=== PATIENT | female | born 1930 | race African-American/Black ===

== ENCOUNTER 2017-07-28 18:25 | Emergency (ER) | payer MEDICARE, OTHER ==
[~2017-07-28] VITALS: Ht 162.6 cm; Wt 50.0 kg
[2017-07-28] MEDS ORDERED: BENA40TA66 PO (18:31)
[2017-07-28] MEDS ORDERED: AMLO2.5T2 PO (18:31)
[2017-07-28] MEDS ORDERED: SODIUM CHLORIDE 0.9% 1,000 ML IV ONE (18:42)
[2017-07-28 19:19] LABS: BASOPHILS % 0.8 % (0.0-2.0); EOSINOPHILS % 2.6 % (0.0-5.0); HEMATOCRIT. 35.5 % (36.0-48.0); LYMPHOCYTES % 27.1 % (20.0-50.0); MEAN CORPUSCULAR HEMOGLOBIN 29.4 pg (28.0-32.0); MEAN CORPUSCULAR VOLUME 86.6 fL (81.0-99.0); MEAN PLATELET VOLUME 8.7 fl (7.4-10.4); MONOCYTES % 10.2 % (2.0-8.0); NEUTROPHILS % 59.3 % (40.0-76.0); PLATELET 221 x1000/uL (130-400); RED CELL DISTRIBUTION WIDTH 14.2 % (11.6-14.6)
[2017-07-28 19:36] LABS: CARBON DIOXIDE 29 mEq/L (21-32); CHLORIDE 103 mEq/L (98-107); TROPONIN I < 0.02 ng/mL (0.00-0.04)
[2017-07-28 20:54] LABS: CLARITY URINE CLEAR (CLEAR); COLOR URINE YELLOW (YELLOW); GLUCOSE URINE NEGATIVE (NEGATIVE); KETONES URINE NEGATIVE (NEGATIVE); LEUKOCYTE ESTERASE URINE NEGATIVE (NEGATIVE); NITRITE URINE NEGATIVE (NEGATIVE); OCCULT BLOOD URINE NEGATIVE (NEGATIVE); PH URINE 6.5 (4.5-8.0); PROTEIN URINE NEGATIVE (NEGATIVE); SPECIFIC GRAVITY URINE 1.013 (1.005-1.030)
[2017-07-28] MEDS ORDERED: POTASSIUM CHLORIDE 20MEQ/PACKET PO ONE (21:30)
[2017-07-28 22:31] VITALS: BP 119/71
== END 2017-07-28 22:32 | disposition home or self-care (01) ==
LOC: ER 18:27 → CMPBEDREQ 23:28
DX: N17.9 Acute kidney failure, unspecified (principal); E87.6 Hypokalemia; R55 Syncope and collapse
CPT/HCPCS: 36415; 70450; 71010; 80053; 81003; 83735; 83880; 84484; 85025; 87086; 93005; 96360; 96361; 99285; J7030

== ENCOUNTER 2019-05-27 17:43 | Inpatient (IN) | payer MEDICARE ==
[~2019-05-27] VITALS: Ht 154.9 cm; Wt 56.2 kg
[~2019-05-27 17:43] MED LIST: AMLO2.5T2 PO; BENA40TA66 PO
[2019-05-27] MEDS ORDERED: NITROGLYCERIN 0.4MG TABLET SL SL PRN (18:30)
[2019-05-27] MEDS ORDERED: NA PHOS,M-B/NA PHOS,DI-BA ENEMA 118ML PR ONE (18:30)
[2019-05-27] MEDS ORDERED: CLONIDINE 0.1MG TABLET PO PRN (18:30)
[2019-05-27] MEDS ORDERED: ACETAMINOPHEN 325MG TABLET PO PRN (18:30)
[2019-05-27] MEDS ORDERED: GUAIFENESIN 200MG/10ML SUGAR FREE UDC PO PRN (18:30)
[2019-05-27] MEDS ORDERED: IPRATROPIUM/ALBUTEROL 0.5-3(2.5)MG/3ML NEB HHN PRN (18:30)
[2019-05-27] MEDS ORDERED: ZOLPIDEM TARTRATE 5MG TABLET PO PRN (18:30)
[2019-05-27] MEDS ORDERED: TRAMADOL 50MG TABLET PO PRN (18:30)
[2019-05-27] MEDS ORDERED: MAGNESIUM/ALUMINUM HYDROXIDE/SIMETHICONE 30ML UDC PO PRN (18:30)
[2019-05-27 18:47] VITALS: BP 137/83
[2019-05-27] MEDS ORDERED: NA PHOS,M-B/NA PHOS,DI-BA ENEMA 118ML PR PRN (19:15)
[2019-05-27 20:00] VITALS: BP 131/82
[2019-05-27 20:05] VITALS: BP 131/82
[2019-05-27] MEDS ORDERED: ENOXAPARIN 60MG/0.6ML SYR SUBCUT SCH (21:00)
[2019-05-27] MEDS: ATORVASTATIN CALCIUM 10MG TABLET PO SCH (21:05)
[2019-05-27] MEDS: DILTIAZEM HCL 60MG TABLET PO SCH (23:40)
[2019-05-28] MEDS: DILTIAZEM HCL 60MG TABLET PO SCH ×3 (05:21→16:53)
[2019-05-28 08:14] VITALS: BP 134/73
[2019-05-28 08:14] LABS: BASOPHILS % 0.9 % (0.0-2.0); EOSINOPHILS % 3.7 % (0.0-5.0); HEMATOCRIT. 39.2 % (36.0-48.0); HEMOGLOBIN. 13.5 g/dL (12.0-16.0); LYMPHOCYTES % 29.2 % (20.0-50.0); MEAN CORPUSCULAR HEMOGLOBIN 29.8 pg (28.0-32.0); MEAN CORPUSCULAR VOLUME 86.6 fL (81.0-99.0); MEAN PLATELET VOLUME 10.1 fl (7.4-10.4); MONOCYTES % 9.5 % (2.0-8.0); NEUTROPHILS % 56.7 % (40.0-76.0); PLATELET 213 x1000/uL (130-400); RED BLOOD CELL COUNT 4.52 mill/uL (4.2-5.4); RED CELL DISTRIBUTION WIDTH 13.9 % (11.6-14.6)
[2019-05-28 08:28] LABS: CHLORIDE 112 mEq/L (98-107)
[2019-05-28] MEDS: ASPIRIN 325MG EC TABLET PO SCH (08:59)
[2019-05-28] MEDS: DOCUSATE SODIUM 100MG CAPSULE PO SCH ×2 (08:59→16:53)
[2019-05-28] MEDS ORDERED: ENOXAPARIN 60MG/0.6ML SYR SUBCUT SCH (09:00)
[2019-05-28] MEDS: ONDANSETRON HCL 4MG TABLET PO PRN (10:14)
[2019-05-28] MEDS ORDERED: APIXABAN 2.5 MG TABLET PO SCH (18:00)
[2019-05-28 20:00] VITALS: BP 113/71
[2019-05-28] MEDS: ATORVASTATIN CALCIUM 10MG TABLET PO SCH (21:49)
[2019-05-29] MEDS: DILTIAZEM HCL 60MG TABLET PO SCH ×4 (00:34→17:55)
[2019-05-29 08:08] VITALS: BP 122/70
[2019-05-29] MEDS: ASPIRIN 325MG EC TABLET PO SCH (09:12)
[2019-05-29] MEDS: DOCUSATE SODIUM 100MG CAPSULE PO SCH ×2 (09:13→17:54)
[2019-05-29] MEDS: APIXABAN 2.5 MG TABLET PO SCH ×2 (09:13→21:40)
[2019-05-29] MEDS: ONDANSETRON HCL 4MG TABLET PO PRN (19:21)
[2019-05-29 20:00] VITALS: BP 126/71
[2019-05-29 21:39] LABS: CLARITY URINE CLOUDY (CLEAR); COLOR URINE AMBER (YELLOW); KETONES URINE NEGATIVE (NEGATIVE); LEUKOCYTE ESTERASE URINE TRACE (NEGATIVE); NITRITE URINE NEGATIVE (NEGATIVE); OCCULT BLOOD URINE NEGATIVE (NEGATIVE); PH URINE 5.5 (4.5-8.0); PROTEIN URINE 1+ (NEGATIVE); UROBILINOGEN URINE 0.2 E.U./dL (0.2-1.0)
[2019-05-29] MEDS: ATORVASTATIN CALCIUM 10MG TABLET PO SCH (21:40)
[2019-05-30] MEDS: DILTIAZEM HCL 60MG TABLET PO SCH ×5 (05:42→23:42)
[2019-05-30 07:56] LABS: EOSINOPHILS % 4.1 % (0.0-5.0); HEMATOCRIT. 36.6 % (36.0-48.0); HEMOGLOBIN. 12.6 g/dL (12.0-16.0); LYMPHOCYTES % 28.2 % (20.0-50.0); MEAN CORPUSCULAR HEMOGLOBIN 30.1 pg (28.0-32.0); MEAN CORPUSCULAR VOLUME 87.2 fL (81.0-99.0); MEAN PLATELET VOLUME 9.2 fl (7.4-10.4); MONOCYTES % 10.8 % (2.0-8.0); NEUTROPHILS % 55.9 % (40.0-76.0); PLATELET 230 x1000/uL (130-400); RED CELL DISTRIBUTION WIDTH 14.3 % (11.6-14.6)
[2019-05-30 08:06] VITALS: BP 115/53
[2019-05-30] MEDS: APIXABAN 2.5 MG TABLET PO SCH ×2 (08:20→20:31)
[2019-05-30] MEDS: DOCUSATE SODIUM 100MG CAPSULE PO SCH ×2 (08:20→16:59)
[2019-05-30] MEDS: ASPIRIN 325MG EC TABLET PO SCH (08:21)
[2019-05-30 08:47] LABS: CHLORIDE 109 mEq/L (98-107)
[2019-05-30 08:59] LABS: PHOSPHORUS 3.8 mg/dL (2.5-4.9); TOTAL IRON BINDING CAPACITY 197 ug/dL (250-450)
[2019-05-30 10:23] LABS: FOLIC ACID (FOLATE) SERUM 9.6 ng/mL (>5.38)
[2019-05-30] MEDS ORDERED: POTA8CAP20 PO (18:13)
[2019-05-30 20:00] VITALS: BP 120/62
[2019-05-30] MEDS: ATORVASTATIN CALCIUM 10MG TABLET PO SCH (20:31)
[2019-05-31] MEDS: DILTIAZEM HCL 60MG TABLET PO SCH ×3 (05:09→17:15)
[2019-05-31 07:59] LABS: BASOPHILS % 0.8 % (0.0-2.0); EOSINOPHILS % 3.7 % (0.0-5.0); HEMATOCRIT. 37.5 % (36.0-48.0); HEMOGLOBIN. 12.8 g/dL (12.0-16.0); LYMPHOCYTES % 27.3 % (20.0-50.0); MEAN CORPUSCULAR HEMOGLOBIN 29.7 pg (28.0-32.0); MEAN CORPUSCULAR VOLUME 87.2 fL (81.0-99.0); MEAN PLATELET VOLUME 9.2 fl (7.4-10.4); MONOCYTES % 9.2 % (2.0-8.0); PLATELET 220 x1000/uL (130-400); RED CELL DISTRIBUTION WIDTH 14.4 % (11.6-14.6)
[2019-05-31 08:19] VITALS: BP 162/63
[2019-05-31] MEDS: DOCUSATE SODIUM 100MG CAPSULE PO SCH ×2 (08:24→16:14)
[2019-05-31] MEDS: APIXABAN 2.5 MG TABLET PO SCH ×2 (08:25→20:37)
[2019-05-31] MEDS: ASPIRIN 325MG EC TABLET PO SCH (08:25)
[2019-05-31 20:00] VITALS: BP 114/60
[2019-05-31] MEDS: ATORVASTATIN CALCIUM 10MG TABLET PO SCH (20:37)
[2019-06-01] MEDS: DILTIAZEM HCL 60MG TABLET PO SCH ×4 (06:08→17:16)
[2019-06-01 08:00] VITALS: BP_SYST 125; BP_SYST 138; BP_DIAS 65; BP_DIAS 85
[2019-06-01] MEDS: APIXABAN 2.5 MG TABLET PO SCH ×2 (08:31→20:32)
[2019-06-01] MEDS: ASPIRIN 325MG EC TABLET PO SCH (08:31)
[2019-06-01] MEDS: DOCUSATE SODIUM 100MG CAPSULE PO SCH ×2 (09:00→16:20)
[2019-06-01 10:03] LABS: EOSINOPHILS % 3.9 % (0.0-5.0); HEMOGLOBIN. 12.8 g/dL (12.0-16.0); LYMPHOCYTES % 20.8 % (20.0-50.0); MEAN CORPUSCULAR HEMOGLOBIN 29.9 pg (28.0-32.0); MEAN CORPUSCULAR VOLUME 88.6 fL (81.0-99.0); MONOCYTES % 8.6 % (2.0-8.0); NEUTROPHILS % 65.7 % (40.0-76.0); PLATELET 214 x1000/uL (130-400); RED BLOOD CELL COUNT 4.29 mill/uL (4.2-5.4); RED CELL DISTRIBUTION WIDTH 14.4 % (11.6-14.6)
[2019-06-01] MEDS: CYANOCOBALAMIN 1000MCG/ML VIAL IM SCH (15:36)
[2019-06-01 20:00] VITALS: BP 145/70
[2019-06-01] MEDS: ATORVASTATIN CALCIUM 10MG TABLET PO SCH (20:31)
[2019-06-02] MEDS: DILTIAZEM HCL 60MG TABLET PO SCH ×5 (05:59→23:25)
[2019-06-02 06:28] LABS: BASOPHILS % 0.8 % (0.0-2.0); EOSINOPHILS % 4.3 % (0.0-5.0); HEMATOCRIT. 37.1 % (36.0-48.0); HEMOGLOBIN. 12.7 g/dL (12.0-16.0); MEAN CORPUSCULAR HEMOGLOBIN 29.8 pg (28.0-32.0); MEAN PLATELET VOLUME 8.8 fl (7.4-10.4); NEUTROPHILS % 53.9 % (40.0-76.0); PLATELET 244 x1000/uL (130-400); RED BLOOD CELL COUNT 4.26 mill/uL (4.2-5.4); RED CELL DISTRIBUTION WIDTH 14.5 % (11.6-14.6)
[2019-06-02 08:00] VITALS: BP 124/66
[2019-06-02] MEDS: DOCUSATE SODIUM 100MG CAPSULE PO SCH ×2 (09:27→17:27)
[2019-06-02] MEDS: APIXABAN 2.5 MG TABLET PO SCH ×2 (09:27→20:06)
[2019-06-02] MEDS: ASPIRIN 325MG EC TABLET PO SCH (09:27)
[2019-06-02] MEDS: CYANOCOBALAMIN 1000MCG/ML VIAL IM SCH (09:28)
[2019-06-02 20:00] VITALS: BP 135/66
[2019-06-02] MEDS: ATORVASTATIN CALCIUM 10MG TABLET PO SCH (20:06)
[2019-06-03] MEDS: DILTIAZEM HCL 60MG TABLET PO SCH ×4 (05:24→23:44)
[2019-06-03 08:00] VITALS: BP 144/74
[2019-06-03] MEDS: DOCUSATE SODIUM 100MG CAPSULE PO SCH ×2 (09:22→17:10)
[2019-06-03] MEDS: APIXABAN 2.5 MG TABLET PO SCH ×2 (09:22→20:59)
[2019-06-03] MEDS: ASPIRIN 325MG EC TABLET PO SCH (09:22)
[2019-06-03] MEDS: CYANOCOBALAMIN 1000MCG/ML VIAL IM SCH (09:23)
[2019-06-03 20:00] VITALS: BP 113/59
[2019-06-03] MEDS: ATORVASTATIN CALCIUM 10MG TABLET PO SCH (20:59)
[2019-06-04] MEDS: DILTIAZEM HCL 60MG TABLET PO SCH ×3 (05:27→17:08)
[2019-06-04 06:51] LABS: BASOPHILS % 1.2 % (0.0-2.0); EOSINOPHILS % 4.1 % (0.0-5.0); HEMATOCRIT. 35.5 % (36.0-48.0); HEMOGLOBIN. 12.1 g/dL (12.0-16.0); LYMPHOCYTES % 29.5 % (20.0-50.0); MEAN CORPUSCULAR HEMOGLOBIN 29.6 pg (28.0-32.0); MEAN CORPUSCULAR VOLUME 87.1 fL (81.0-99.0); MEAN PLATELET VOLUME 8.7 fl (7.4-10.4); MONOCYTES % 8.4 % (2.0-8.0); NEUTROPHILS % 56.8 % (40.0-76.0); PLATELET 237 x1000/uL (130-400); RED BLOOD CELL COUNT 4.08 mill/uL (4.2-5.4); RED CELL DISTRIBUTION WIDTH 14.4 % (11.6-14.6)
[2019-06-04 08:00] VITALS: BP 103/70
[2019-06-04] MEDS: DOCUSATE SODIUM 100MG CAPSULE PO SCH ×2 (08:12→17:09)
[2019-06-04] MEDS: APIXABAN 2.5 MG TABLET PO SCH ×2 (08:12→20:58)
[2019-06-04] MEDS: CYANOCOBALAMIN 1000MCG/ML VIAL IM SCH (08:12)
[2019-06-04] MEDS: ASPIRIN 325MG EC TABLET PO SCH (08:12)
[2019-06-04 20:00] VITALS: BP 114/75
[2019-06-04] MEDS: ATORVASTATIN CALCIUM 10MG TABLET PO SCH (20:59)
[2019-06-05] MEDS: DILTIAZEM HCL 60MG TABLET PO SCH ×4 (00:56→17:01)
[2019-06-05 07:11] LABS: BASOPHILS % 1.1 % (0.0-2.0); EOSINOPHILS % 5.3 % (0.0-5.0); HEMATOCRIT. 36.9 % (36.0-48.0); HEMOGLOBIN. 12.7 g/dL (12.0-16.0); LYMPHOCYTES % 20.3 % (20.0-50.0); MEAN CORPUSCULAR VOLUME 87.3 fL (81.0-99.0); MEAN PLATELET VOLUME 8.9 fl (7.4-10.4); MONOCYTES % 7.9 % (2.0-8.0); NEUTROPHILS % 65.4 % (40.0-76.0); PLATELET 231 x1000/uL (130-400); RED BLOOD CELL COUNT 4.23 mill/uL (4.2-5.4); RED CELL DISTRIBUTION WIDTH 14.4 % (11.6-14.6)
[2019-06-05 08:00] VITALS: BP 138/74
[2019-06-05] MEDS: ASPIRIN 325MG EC TABLET PO SCH (09:16)
[2019-06-05] MEDS: DOCUSATE SODIUM 100MG CAPSULE PO SCH ×2 (09:16→17:01)
[2019-06-05] MEDS: CYANOCOBALAMIN 1000MCG/ML VIAL IM SCH (09:16)
[2019-06-05] MEDS: APIXABAN 2.5 MG TABLET PO SCH ×2 (09:22→21:15)
[2019-06-05 19:11] LABS: 25-HYDROXY VITAMIN D3 12 ng/mL (.)
[2019-06-05 20:00] VITALS: BP 140/73
[2019-06-05] MEDS: ATORVASTATIN CALCIUM 10MG TABLET PO SCH (21:15)
[2019-06-05] MEDS: DIPHENHYDRAMINE 25MG CAPSULE PO PRN (21:15)
[2019-06-06] MEDS: DILTIAZEM HCL 60MG TABLET PO SCH ×3 (00:24→11:06)
[2019-06-06] MEDS: DIPHENHYDRAMINE 25MG CAPSULE PO PRN (06:30)
[2019-06-06 07:42] VITALS: BP 128/63
[2019-06-06] MEDS: CYANOCOBALAMIN 1000MCG/ML VIAL IM SCH (08:16)
[2019-06-06] MEDS: APIXABAN 2.5 MG TABLET PO SCH (08:16)
[2019-06-06] MEDS: ASPIRIN 325MG EC TABLET PO SCH (08:16)
[2019-06-06] MEDS: DOCUSATE SODIUM 100MG CAPSULE PO SCH (08:16)
[2019-06-06 09:22] VITALS: BP 128/63
[2019-06-06] MEDS ORDERED: ERGOCALCIFEROL 50000UNITS CAPSULE PO NR (13:21)
[2019-06-08] MEDS ORDERED: CYANOCOBALAMIN 1000MCG/ML VIAL IM SCH (09:00)
[2019-06-13] MEDS ORDERED: ERGOCALCIFEROL 50000UNITS CAPSULE PO SCH (09:00)
== END 2019-06-06 14:35 | disposition home or self-care (01) | DRG 91 ==
PROVIDERS: ADMIT Physical Medicine & Rehabilitation Spinal Cord Injury Medicine; ATTEND Internal Medicine
DX: G92 Toxic encephalopathy (principal); I21.4 Non-ST elevation (NSTEMI) myocardial infarction; E44.0 Moderate protein-calorie malnutrition; N17.9 Acute kidney failure, unspecified; I11.9 Hypertensive heart disease without heart failure; G90.9 Disorder of the autonomic nervous system, unspecified; F06.31 Mood disorder due to known physiological condition with depressive features; I45.10 Unspecified right bundle-branch block; I48.0 Paroxysmal atrial fibrillation; F03.90 Unspecified dementia, unspecified severity, without behavioral disturbance, psychotic disturbance, mood disturbance, and anxiety; E87.6 Hypokalemia; E78.00 Pure hypercholesterolemia, unspecified; E78.5 Hyperlipidemia, unspecified; I51.7 Cardiomegaly; I25.2 Old myocardial infarction
CPT/HCPCS: 36415; 76770; 80048; 81003; 82306; 82607; 82728; 82746; 83540; 83550; 83735; 84100; 84134; 84443; 92523; 92610; 93005; 93970; 97110; 97112; 97116; 97150; 97162; 97166; 97530; 97535; G0515; J1650; J3420; Q0162; Q0163

== ENCOUNTER 2019-09-10 14:52 | Emergency (ER) | payer MEDICARE ==
[~2019-09-10] VITALS: Ht 165.1 cm; Wt 60.0 kg
[~2019-09-10 14:52] MED LIST changes: -AMLO2.5T2 PO; -BENA40TA66 PO; +POTA8CAP20 PO
[2019-09-10 15:17] VITALS: BP 123/74
[2019-09-10] MEDS ORDERED: OXYCODONE HCL/ACETAMINOPHEN 5/325MG TABLET PO ONE (15:45)
== END 2019-09-10 17:42 | disposition home or self-care (01) ==
LOC: ER 14:52
DX: M25.552 Pain in left hip (principal); I10 Essential (primary) hypertension; F03.90 Unspecified dementia, unspecified severity, without behavioral disturbance, psychotic disturbance, mood disturbance, and anxiety; W01.0XXA Fall on same level from slipping, tripping and stumbling without subsequent striking against object, initial encounter; Y93.89 Activity, other specified; Y92.128 Other place in nursing home as the place of occurrence of the external cause
CPT/HCPCS: 73502; 99283